=== PATIENT | female | born 1990 | race African-American/Black ===

== ENCOUNTER 2022-07-31 19:26 | Emergency (ER) | payer BC, OTHER ==
[~2022-07-31] VITALS: Ht 175.3 cm; Wt 146.5 kg
[2022-07-31] MEDS ORDERED: IBUPROFEN 600MG TABLET PO STA (23:23)
[2022-08-01] MEDS ORDERED: NAPR-681 PO (00:26)
[2022-08-01 00:27] VITALS: BP 132/82
== END 2022-08-01 00:48 | disposition home or self-care (01) ==
LOC: ER 19:26
DX: J02.8 Acute pharyngitis due to other specified organisms (principal)
CPT/HCPCS: 87070; 87430; 99283